=== PATIENT | male | born 1990 | race Caucasian/White ===

== ENCOUNTER 2023-11-08 21:40 | Emergency (ER) | payer OTHER ==
[2023-11-09] MEDS ORDERED: IBUPROFEN 600 MG TAB PO ONE (01:22)
--- NOTE | 2023-12-11 07:57 | XR ---
Patient Dusty Hamilton ID [id number] Order # EXAMINATION TYPE: XR nasal bone DATE OF EXAM: 11/09/2023 COMPARISON: No comparison available on downtime PACS. HISTORY: Facial contusion TECHNIQUE: Nasal bones 3 projections FINDINGS: There is a subtle nondisplaced fracture within the mid nasal bone. No displacement is ident ified. Maxillary spine is intact. Left septal deviation is noted. Paranasal sinuses are clear. Sella partial ly visualized within the field of view appears unremarkable. IMPRESSION: 1. Nondisplaced mid nasal bone fracture.
== END 2023-11-09 01:58 | disposition home or self-care (01) ==
LOC: EC 21:40
CPT/HCPCS: 70160; 99283